=== PATIENT | male | born 1960 | race Caucasian/White ===

== ENCOUNTER 2021-12-29 07:10 | Outpatient (CLI) | payer BC, SELFPAY ==
--- NOTE | 2021-12-29 07:15 | MR_ITS ---
[address] [address] Phone:?[phone] Fax:?[phone] Referring Physician Information: Kaz Arshad [address] [facility] [address] Phone:?[phone] Fax:?[phone] Patient:?Quincy Griffith D.O.B:?1960 Sex:?Male Phone:?[phone] [facility] MRN:[id number] Exam Date:?12/29/2021 ? EXAM: MRI of the LEFT ANKLE, without contrast CLINICAL: Left ankle and foot pain. Evaluate for Achilles injury. COMPARISONS: None available. TECHNICAL: MRI sequences of the left ankle: Axials: PD, T2 Coronals: PD, T2 Sagittals: PD, T2, STIR SEDATION: None. CONTRAST: None. FINDINGS: Achilles tendon: There is high-grade tearing of the Achilles tendon beginning approximately 6.5 cm proximal to the calcaneal attachment site of the Achilles tendon extending proximally by approximately 3 cm as seen on sagittal series 5 image 13-15 and axial series 4 images 1-15. Associated adjacent edema and fluid about the site of high-grade tendon tearing. Tendinosis involves the remainder of the Achilles tendon with partial tearing seen to involve the Achilles tendon more proximal to the segment of high-grade tendon tearing. Enthesophyte formation is seen to involve the distal Achilles tendon at the capsular attachment site with minimal marrow edema involving the adjacent posterior calcaneus. Plantar aponeurosis: Unremarkable. Tarsal tunnel: No masses identified. Sinus Tarsi:?There is mild scarring/synovitis within the sinus Tarsi. Ligaments: Anterior talofibular: Irregularity and attenuation of the ligament suggesting sequelae of prior sprain injuries. Calcaneofibular: Mild irregularity suggesting sequelae of prior sprain injuries. Posterior talofibular: No injury. Syndesmotic:?The anterior inferior and posterior inferior tibiofibular ligaments are intact. Deltoid: Mild irregularity of the ligament likely reflecting sequelae of prior sprain injuries. Sinus tarsi: Intact lateral cervical and medial interosseous ligaments. Spring: Intact. Bifurcate and calcaneocuboid: Intact. Flexor tendons: Posterior tibial: Mild fluid about the tendon. No significant tendinosis or tendon tear. Flexor digitorum longus: Normal. Flexor hallucis longus: Mild fluid about the tendon as it courses along the posterior ankle. No significant tendinosis or tendon tear. Peroneus brevis and longus: No tendinopathy, tear or tenosynovitis. Extensor tendons: Tibialis anterior: Minimal tendinosis/partial interstitial tearing of the distal tendon as seen on axial series 4 images 23-30. Extensor hallucis longus: Normal. Extensor digitorum longus: Normal. Joints/Osseous structures: Small 6 mm osteochondral lesion/sequelae of prior osteochondral injury involving the lateral talar dome as seen on sagittal series 5 image 18 with mild associated subchondral marrow edema. Mild subchondral reactive edema involves the anterior and posterior distal tibia at the tibiotalar joint consistent with mild changes of arthrosis. Small effusion is present within the posterior subtalar joint. Changes of arthrosis with mild subchondral reactive marrow edema involves the second TMT joint. There is fatty atrophy throughout the imaged anterior and posterior lower leg musculature. Medial and lateral ankle subcutaneous soft tissue edema is noted extending into the dorsal lateral foot. IMPRESSION: 1. High-grade partial tearing of the Achilles tendon as above. 2. Sequelae of prior sprain injuries involving the medial and lateral ankle ligaments as above. 3. Minimal tendinosis/partial interstitial tearing of the distal tibialis anterior tendon. 4. Small 6 mm osteochondral lesion/sequelae of prior osteochondral injury involving the lateral talar dome. Mild changes of arthrosis involving the tibiotalar joint and there is a small effusion within the posterior subtalar joint. Changes of arthrosis involving the second TMT joint. 5. Mild scar/synovitis within the sinus Tarsi which can be seen in patients with sinus Tarsi syndrome, recommend close clinical correlation. JCZ Electronically signed on 12/29/2021 11:43:00 AM by Rene Rm D.O.
== END 2021-12-29 07:11 | disposition home or self-care (01) ==
PROVIDERS: PCP Family Medicine; Visit Provider Physician Assistant Surgical
DX: M25.572 Pain in left ankle and joints of left foot (principal); S86.012A Strain of left Achilles tendon, initial encounter; M25.472 Effusion, left ankle; S93.402A Sprain of unspecified ligament of left ankle, initial encounter
CPT/HCPCS: 73721

== ENCOUNTER 2022-07-14 07:30 | Outpatient (RCR) | payer BC, SELFPAY | END 2022-08-29 10:30 | disposition home or self-care (01) | PROVIDERS: PCP Family Medicine; Visit Provider Orthopaedic Surgery Sports Medicine | DX: S86.012A Strain of left Achilles tendon, initial encounter (principal); S96.912A Strain of unspecified muscle and tendon at ankle and foot level, left foot, initial encounter; S93.402A Sprain of unspecified ligament of left ankle, initial encounter; M25.572 Pain in left ankle and joints of left foot; Z51.89 Encounter for other specified aftercare | CPT/HCPCS: 97110; 97140; 97162 ==

== ENCOUNTER 2023-10-17 03:45 | Emergency (ER) | payer MEDICARE, BC, SELFPAY ==
[2023-10-17 03:53] VITALS: BP 159/90; PULSE 65; RESP 20; TEMP 36.4; O2SAT 98; BMI 33.2
--- NOTE | 2023-10-17 03:57 | ED_ITS ---
HPI - Chest Pain General Time Seen by Provider: 03:57 Date Seen: 10/17/23 Chief Complaint: Chest Pain Stated Complaint: chest pain,clamminess Time Seen by Provider: 10/17/23 03:57 Source: patient, RN notes reviewed and old records reviewed Mode of arrival: ambulatory Limitations: no limitations History of Present Illness HPI narrative: 63-year-old male who comes in today with chest pain. Patient got up about 90 minutes prior to the emergency department and shortly thereafter developed substernal chest pain. Nonradiating, no shortness of breath, no nausea vomit ing. Pain is mostly resolved now. Related Data Home Medications ?Medication ?Instructions ?Recorded ?Confirmed aspirin 81 mg tablet,delayed 81 mg PO DAILY 12/21/21 10/17/23 release cetirizine 10 mg tablet (Zyrtec) 10 mg PO QDAY PRN 12/21/21 10/17/23 albuterol sulfate 90 mcg/actuation 2 puff inhalation Q6H PRN 01/03/22 10/17/23 aerosol inhaler atorvastatin 20 mg tablet 20 mg PO QPM 10/17/23 10/17/23 fluticasone 250 mcg-salmeterol 50 1 ea inhalation Q12H 10/17/23 10/17/23 mcg/dose blistr powdr for inhalation sulfamethoxazole 800 1 tab PO BID 10/17/23 10/17/23 mg-trimethoprim 160 mg tablet Allergies Allergy/AdvReac Type Severity Reaction Status Date / Time No Known Drug Allergies Allergy Verified 10/17/23 03:53 [facility] Medical History Arthritis of both knees Surgical History History of arthroscopy of left knee (02/03/09) History of arthroscopy of right knee (02/22/17) History of 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 Social History Smoking Status: Never smoker Do you use any of these nicotine containing products: None Second hand tobacco smoke exposure: No How often do you have a drink containing alcohol: never AUDIT-C Alcohol total score: 0 Non-prescribed substance use: denies use service: No Exam Narrative Exam Narrative: General: Well-developed and well-nourished, no acute distress Head: Atraumatic and normocephalic Eyes: Pupils are equal reactive, extraocular motions intact, conjunctiva clear ENT: External nose and ears are normal, posterior pharynx without erythema or exudate Neck: No midline cervical tenderness, full spontaneous range of motion the neck, trachea midline, no adenopathy Heart: Regular rate and rhythm no murmurs or thrills Lungs: Clear to auscultation bilaterally without wheezes or crackles Abdomen: Soft, nontender, nondistended with active bowel sounds Musculoskeletal: No tenderness, deformity, or edema Neurologic: Awake, alert, and oriented x3, no gross focal neurologic deficits, cranial nerves intact as tested Psych: Mood and affect are appropriate Skin: No rashes Const Vital Signs, click to edit/add: Vital Signs - 24 hr 10/17/23 03:53 10/17/23 05:54 Temperature 97.6 F Pulse Rate [Left Pulse Oximeter] 65 70 Respiratory Rate 20 16 Blood Pressure [Right Upper Arm] 159/90 H 135/80 Pulse Oximetry 98 96 Oxygen Delivery Method Room Air Room Air Course Course ED Course: Patient seen and examined, prior records reviewed. Patient presents today with substernal chest pain which he describes as heartburn starting about 1 hour prior to coming emergency department. Pain is still present but significantly improved now. No associated symptoms and no radiation. Initial EKG is normal, labs are ordered, likely gastrointestinal source but will evaluate for acute coronary syndrome. Chest x-ray ordered as well. No epigastric or upper abdominal tenderness to suggest pancreatitis or acute cholecystitis. Reevaluation(s) Time of Reevaluation #1: 04:11 Reevaluation #1: Initial troponin is 0. Updated patient, plan for repeat troponin at 2 hours and if still negative, patient can be discharged. Time of Reevaluation #2: 06:10 Reevaluation #2: Labs ordered and independently interpreted by me with normal CBC, normal basic metabolic panel, normal BNP. Repeat troponin is negative. Patient feels better after Maalox and stable for discharge. Chest x-ray and panel interpreted by me negative for acute findings Vital Signs Vital signs: Initial Vital Signs Temperature 97.6 F 10/17/23 03:53 Temperature Source Temporal Artery Scan 10/17/23 03:53 Pulse Rate 65 10/17/23 03:53 Pulse Rhythm Regular 10/17/23 03:53 Pulse Strength 3+ Normal 10/17/23 03:53 Respiratory Rate 20 10/17/23 03:53 Blood Pressure 159/90 H 10/17/23 03:53 Blood Pressure Mean 113 H 10/17/23 03:53 Blood Pressure Position Sitting 10/17/23 03:53 Pulse Oximetry 98 10/17/23 03:53 Oxygen Delivery Method Room Air 10/17/23 03:53 Vital Signs Temperature 97.6 F 10/17/23 03:53 Pulse Rate 65 10/17/23 03:53 Respiratory Rate 20 10/17/23 03:53 Blood Pressure 159/90 H 10/17/23 03:53 Pulse Oximetry 98 10/17/23 03:53 Oxygen Delivery Method Room Air 10/17/23 03:53 Temperature 97.6 F 10/17/23 03:53 Pulse Rate 70 10/17/23 05:54 Respiratory Rate 16 10/17/23 05:54 Blood Pressure 135/80 10/17/23 05:54 Pulse Oximetry 96 10/17/23 05:54 Oxygen Delivery Method Room Air 10/17/23 05:54 Medications Administered Medications: Discontinued Medications Generic Name Dose Route Start Last Admin Trade Name Freq PRN Reason Stop Dose Admin Lidocaine/Aluminum/Magnesium/Simeth 15 ml 10/17/23 04:11 10/17/23 04:17 Mag Hydrox/Aluminum Hyd/Simeth 30 Ml Oral.Susp PO 10/17/23 04:12 15 ml ONCE ONE Administration MDM - Chest Pain Lab Data Labs: Lab Results 10/17/23 10/17/23 10/17/23 Range/Units 03:50 03:53 06:00 WBC 6.40 (4.50-11.00) K/uL RBC 4.71 (4.30-5.90) m/uL Hgb 13.3 L (13.5-17.5) gm/dL Hct 41.2 (37.0-53.0) % MCV 88 (80-100) fL MCH 28 (26-34) pg MCHC 32 (32-36) gm/dL RDW Coeff of Keily 14.0 (11.5-15.5) % Plt Count 203 (140-440) K/uL Neut % (Auto) 59.7 (42.0-72.0) % Lymph % (Auto) 27.3 (20-44) % [place] % (Auto) 10.3 (0.0-11.0) % Eos % (Auto) 1.1 (0.0-7.0) % Baso % (Auto) 0.5 (0.0-3.0) % Neut # (Auto) 3.82 (1.7-7.0) K/uL Lymph # (Auto) 1.75 (0.90-2.90) K/uL [place] # (Auto) 0.70 (0.00-0.90) K/UL Eos # (Auto) 0.07 (0.00-0.50) K/uL Baso # (Auto) 0.03 (0.00-0.30) K/uL Abs Immat Gran (auto) 0.07 (0.00-0.30) K/uL Imm/Tot Granulo (auto) 1.1 % Sodium 138 (135-149) mmol/L Potassium 4.1 (3.6-5.1) mmol/L Chloride 106 (96-114) mmol/L Carbon Dioxide 25 (20-32) mmol/L Anion Gap 7 (7-15) mEq/L BUN 27 (7-30) mg/dL Creatinine 0.9 (0.5-1.5) mg/dL Estimated Creat Clear 73.65 Estimated GFR 95 ml/min Glucose 106 (60-115) mg/dL Calcium 9.0 (8.4-10.6) mg/dL Magnesium 2.1 (1.5-2.6) mg/dL NT-Pro-B Natriuret Pep 23 pg/mL POC Troponin I 0.00 L 0.00 L (0.01-0.04) ng/ml ECG Data Attestation: I personally reviewed and interpreted this ECG as follows: ECG interpretation date: 10/17/23 ECG interpretation time: 03:58 Prior ECG tracings: not available for review Interpretation: Independently interpreted by me with normal sinus rhythm rate 66, no acute ST elevations or depressions, normal intervals, normal axis, VA 154. No prior for comparison. Discharge Plan Discharge Clinical Impression: Atypical chest pain Patient Disposition: Home, Self-Care Condition: Stable Instructions: Chest Pain (DC) Additional Instructions: Follow-up with your primary care doctor to discuss further testing as an outpatient Activity Level: Activity as Tolerated Discharge Diet: Regular Prescriptions: No Action aspirin 81 mg tablet,delayed release (DR/EC) 81 mg PO DAILY cetirizine [Zyrtec] 10 mg tablet 10 mg PO QDAY PRN albuterol sulfate 90 mcg/actuation HFA aerosol inhaler 2 puff inhalation Q6H PRN fluticasone propion-salmeterol 250-50 mcg/dose blister with device 1 ea INHALATION Q12H atorvastatin 20 mg tablet 20 mg PO QPM sulfamethoxazole-trimethoprim 800-160 mg tablet 1 tab PO BID Follow Up/Referrals: Porfirio Gavin MD [Primary Care Provider] - Stand Alone Forms: [facility] [employer] Info Instructions
--- NOTE | 2023-10-17 04:06 | CRLHL7_ITS ---
For Patients: As a result of the Cures Act, medical imaging exams and procedure reports are released immediately into your electronic medical record. You may view this report before your referring provider. If you have questions, please contact your health care provider. INDICATION: Chest pain COMPARISON: None TECHNIQUE: Single view examination. FINDINGS: TUBES AND LINES: None. HEART AND MEDIASTINUM: The heart size is normal. The mediastinal contour appears normal for patient age. LUNGS AND PLEURAL SPACES: The lungs appear normal.The pleural spaces are unremarkable. OSSEOUS STRUCTURES: Age-appropriate appearance. No acute focal finding. IMPRESSION: No evidence of active pulmonary disease. Dictated by Ermias Webb MD @ 10/17/2023 4:42:36 AM (Electronically Signed)
[2023-10-17 04:10] LABS: Basophils Absolute Auto 0.03 K/uL (0.00-0.30); Basophils Percent Auto 0.5 % (0.0-3.0); Eosinophils Absolute Auto 0.07 K/uL (0.00-0.50); Eosinophils Percent Auto 1.1 % (0.0-7.0); Hematocrit 41.2 % (37.0-53.0); Hemoglobin* 13.3 gm/dL (13.5-17.5); Immature Granulocytes Abs Auto 0.07 K/uL (0.00-0.30); Immature Granulocytes Pct Auto 1.1 %; Lymphocytes Absolute Auto 1.75 K/uL (0.90-2.90); Lymphocytes Percent Auto 27.3 % (20-44); Mean Corpuscular HGB Conc 32 gm/dL (32-36); Mean Corpuscular Hemoglobin 28 pg (26-34); Mean Corpuscular Volume 88 fL (80-100); Monocytes Percent Auto 10.3 % (0.0-11.0); Neutrophils Absolute Auto 3.82 K/uL (1.7-7.0); Neutrophils Percent Auto 59.7 % (42.0-72.0); Platelet Count* 203 K/uL (140-440); Red Blood Count 4.71 m/uL (4.30-5.90)
[2023-10-17 04:14] LABS: Chloride* 106 mmol/L (96-114); Potassium* 4.1 mmol/L (3.6-5.1); Sodium* 138 mmol/L (135-149)
[2023-10-17 04:17] LABS: Anion Gap 7 mEq/L (7-15); Blood Urea Nitrogen* 27 mg/dL (7-30); Carbon Dioxide* 25 mmol/L (20-32); Creatinine* 0.9 mg/dL (0.5-1.5); Est. Creatinine Clearance* 73.65; Estimated Glomerular Filt Rate 95 ml/min; Glucose* 106 mg/dL (60-115); Slide Review Reflex No
[2023-10-17] MEDS: MAG HYDROX/ALUMINUM HYD/SIMETH 30 ML ORAL.SUSP 15 ML PO (04:17)
[2023-10-17 04:18] LABS: Magnesium* 2.1 mg/dL (1.5-2.6)
[2023-10-17 04:27] LABS: NT Pro B Type NatriureticPept* 23 pg/mL
[2023-10-17 05:54] VITALS: BP 135/80; PULSE 70; RESP 16; O2SAT 96
== END 2023-10-17 06:19 | disposition home or self-care (01) ==
LOC: ED 04:24
PROVIDERS: Emergency Provider Family Medicine; PCP Family Medicine
DX: R07.9 Chest pain, unspecified (principal)
CPT/HCPCS: 36415; 71045; 80048; 83735; 83880; 84484; 85025; 93005; 99284; 99285; A9270